=== PATIENT | female | born 1990 | race Native Hawaiian/Other Pacific Islander ===

== ENCOUNTER 2018-10-27 13:51 | Emergency (ER) | payer OTHER ==
[~2018-10-27] VITALS: Ht 162.6 cm; Wt 54.4 kg
[2018-10-27 13:59] VITALS: TEMP 97.9
[2018-10-27 15:26] VITALS: BP 104/67
== END 2018-10-27 15:26 | disposition home or self-care (01) ==
LOC: ED 13:51
DX: S92.355A Nondisplaced fracture of fifth metatarsal bone, left foot, initial encounter for closed fracture (principal); X50.9XXA Other and unspecified overexertion or strenuous movements or postures, initial encounter
CPT/HCPCS: 99283; J1885